=== PATIENT | male | born 1965 | race Caucasian/White ===

== ENCOUNTER 2023-05-29 07:00 | Day surgery (SDC) | payer BC ==
[~2023-05-29] VITALS: Ht 182.9 cm; Wt 109.1 kg
[~2023-05-29 07:00] MED LIST: IBUP-2473 PO; LISI1TAB46 PO
[2023-05-29] MEDS ORDERED: LIDOCAINE PF 1% 2 ML VIAL IR PRN (07:15)
[2023-05-29] MEDS ORDERED: TIMOLOL 0.5% (CATARACTS) 0.3 ML BTL OU PRN (07:15)
[2023-05-29] MEDS ORDERED: POVIDONE IODINE OPHTH SOLN 5% 30 ML OP ONE (07:15)
[2023-05-29] MEDS ORDERED: MOXIFLOXACIN OPHTH SOLN 5 MG/ML 0.5 ML SYRINGE OP ONE (07:15)
[2023-05-29] MEDS: TETRACAINE 0.5% OPHTH SOLN 4 ML BTL (SINGLE DOSE ONLY) OU PRN ×4 (07:20→07:50)
[2023-05-29 07:30] VITALS: BP 109/80
[2023-05-29] MEDS: PHENYLEPHRINE 10% OPHTH SOLN 5 ML BTL OU SCH ×3 (07:34→07:50)
[2023-05-29] MEDS: TROPICAMIDE 1% OPH SOLN (MYDRIACYL) 15 ML BTL OP SCH ×3 (07:34→07:50)
--- NOTE | 2023-05-29 07:41 | Ophthalmologist Pre-Op Note ---
Pre-Operative Progress Note H&P Reviewed The H&P was reviewed, patient examined and no changes noted. Date H&P Reviewed: May 29, 2023 Time H&P Reviewed: 07:41 Pre-Op Dx Cataract, Right Eye KARSON PERLA MD May 29, 2023 07:41
[2023-05-29] MEDS ORDERED: MIDAZOLAM INJ 2 MG/2 ML VIAL ONE (08:05)
--- NOTE | 2023-05-29 08:21 | Ophthalmology Operative Report ---
Cataract removal/placement IOL PREOPERATIVE DIAGNOSIS: Cataract Right Eye POSTOPERATIVE DIAGNOSIS: Cataract Right Eye PROCEDURE: Cataract removal and placement of posterior chamber implant, right eye SURGEON: Florentino Perla ANESTHESIA: Topical with sedation COMPLICATIONS: None ESTIMATED BLOOD LOSS: Minimal DESCRIPTION OF PROCEDURE: After proper informed consent was obtained, the patient, a 58 male, was taken to the Operating Room and the right eye was anesthetized with tetracaine. The right eye was then prepped and draped in the usual manner. A wire lid speculum was placed. A paracentesis was made at the left hand position. Preservative free lidocaine was injected into the anterior chamber followed by viscoelastic. A clear corneal incision was made in the temporal position. A capsulorrhexis was preformed and the central nuclear and cortical material were removed. The posterior capsule was polished and Andrew 22.0 CNA0T0 IOL was placed into the capsular bag. The residual viscoelastic was aspirated and balanced saline solution was injected into the anterior chamber. Moxifloxacin was injected into the anterior chamber. The wound was checked and found to be water tight. The patient tolerated the procedure well without complications. FLORENTINO PERLA MD May 29, 2023 08:21
[2023-05-29 08:37] VITALS: BP 105/72
--- NOTE | 2023-05-29 12:09 | Anesthesia-General Post-Op ---
MAC Patient Condition Mental Status/LOC: Same as Preop Cardiovascular: Satisfactory Nausea/Vomiting: Absent Respiratory: Satisfactory Pain: Controlled Complications: Absent Post Op Complications Complications None Follow Up Care/Instructions Patient Instructions None needed. Anesthesiology Discharge Order Discharge Order Patient was doing well this morning after the procedure with no complaints, stable vital signs, no apparent adverse anesthesia problems. No complications reported per nursing. VIDAL BAXTER DO May 29, 2023 12:09
== END 2023-05-29 08:38 | disposition home or self-care (01) ==
LOC: SDC 07:00
PROVIDERS: ATTEND Specialist
DX: H25.9 Unspecified age-related cataract (principal)
CPT/HCPCS: 66984; V2632